=== PATIENT | male | born 1950 | race Caucasian/White ===

== ENCOUNTER 2017-01-27 06:27 | Day surgery (SDC) | payer OTHER ==
[~2017-01-27] VITALS: Ht 172.7 cm; Wt 136.1 kg
[~2017-01-27 06:27] MED LIST: ACET1TAB12 PO; ALLO300T2 PO; AMIT100T2 PO; AMLO5TAB88 PO; ASPI-1159 PO; ATOR20TA PO; BENA40TA3 PO; BENZ1TAB7 PO; CILO100T PO; CITA40TA11 PO; COLC0.6T66 PO; COR3 PO; FURO-151 PO; INSULIN LANTUS SQ; INSULIN LISPRO SQ; LORA10TA7 PO; METF500T4 PO; METO-296 PO; METO2.5T14 PO; OMEP20TA80 PO; POTA8TAB4 PO; PREG50CA PO; RISP1TAB26 PO; SPIR25TA4 PO; TAMS-11 PO
[2017-01-27] MEDS ORDERED: SODIUM CHLORIDE 0.9% 1,000 ML IV SCH (07:00)
[2017-01-27] MEDS ORDERED: BACITRACIN ZINC 15GM TUBE TOP ONE (07:04)
[2017-01-27] MEDS ORDERED: GELATIN SPONGE,ABSORBABLE SZ 100 ONE (07:04)
[2017-01-27] MEDS ORDERED: NORMAL SALINE 0.9% 10 ML SYR ONE (07:05)
[2017-01-27] MEDS ORDERED: BUPIVACAINE HCL/PF 0.5% (5MG/ML) 10ML ONE (07:05)
[2017-01-27] MEDS ORDERED: BACITRACIN 50,000 UNITS/VIAL ONE (07:05)
[2017-01-27] MEDS ORDERED: THROMBIN (BOVINE) 5000 UNITS/VIAL TOP ONE (07:05)
[2017-01-27] MEDS ORDERED: LIDOCAINE HCL 1% 20ML VIAL (Pyxis) INJ ONE ×2 (07:05→08:25)
[2017-01-27 07:13] LABS: EOSINOPHILS % 3.6 % (0.0-5.0); HEMATOCRIT. 42.4 % (42.0-52.0); LYMPHOCYTES % 26.6 % (20.0-50.0); MEAN CORPUSCULAR HEMOGLOBIN 30.8 pg (28.0-32.0); MEAN CORPUSCULAR VOLUME 87.1 fL (80.0-94.0); MEAN PLATELET VOLUME 7.6 fl (7.4-10.4); MONOCYTES % 8.1 % (2.0-8.0); NEUTROPHILS % 60.7 % (40.0-76.0); PLATELET 203 x1000/uL (130-400); RED BLOOD CELL COUNT 4.87 mill/uL (4.7-6.1); RED CELL DISTRIBUTION WIDTH 16.7 % (11.6-14.6)
[2017-01-27 07:15] LABS: INR 1.1; PARTIAL THROMBOPLASTIN TIME 28.9 sec (24.0-34.0)
[2017-01-27 07:17] LABS: CARBON DIOXIDE 30 mEq/L (21-32); CHLORIDE 102 mEq/L (98-107)
[2017-01-27] MEDS ORDERED: FENTANYL CITRATE/PF 50MCG/ML 2ML VIAL ONE ×2 (08:14→08:25)
[2017-01-27] MEDS ORDERED: MIDAZOLAM HCL 2 MG/2 ML VIAL ONE ×2 (08:14→08:25)
[2017-01-27] MEDS ORDERED: DEXAMETHASONE 4MG/ML 1ML VIAL ONE (08:24)
[2017-01-27] MEDS ORDERED: SODIUM CHLORIDE 0.9% 10ML VIAL ONE (08:25)
[2017-01-27] MEDS ORDERED: ONDANSETRON HCL 4MG/2ML VIAL ONE (08:25)
[2017-01-27] MEDS ORDERED: PROPOFOL 200MG/20ML VIAL IV ONE (08:25)
[2017-01-27] MEDS ORDERED: CEFAZOLIN SODIUM 1000MG/VIAL ONE (08:25)
[2017-01-27] MEDS ORDERED: SKIN ADHESIVE 0.7 GM EA TOP ONE (08:33)
[2017-01-27] MEDS ORDERED: ONDANSETRON HCL 4MG/2ML VIAL IV ONE (09:00)
[2017-01-27] MEDS ORDERED: HYDROMORPHONE HCL/PF 2MG/ML CPJ IV PRN ×2 (09:00→10:15)
[2017-01-27] MEDS ORDERED: LABETALOL HCL 20MG/4ML CARPUJECT IV PRN (10:15)
[2017-01-27] MEDS ORDERED: MEPERIDINE HCL/PF 25MG/ML CPJ IV PRN (10:15)
[2017-01-27] MEDS ORDERED: ONDANSETRON HCL 4MG/2ML VIAL IV PRN (10:15)
== END 2017-01-27 11:30 | disposition home or self-care (01) ==
LOC: OR 06:27
PROVIDERS: ATTEND Surgery Vascular Surgery
DX: I11.0 Hypertensive heart disease with heart failure (principal); I50.9 Heart failure, unspecified; I73.9 Peripheral vascular disease, unspecified; G47.33 Obstructive sleep apnea (adult) (pediatric); E78.5 Hyperlipidemia, unspecified; E11.9 Type 2 diabetes mellitus without complications; N40.0 Benign prostatic hyperplasia without lower urinary tract symptoms; F32.9 Major depressive disorder, single episode, unspecified; E66.09 Other obesity due to excess calories; Z79.4 Long term (current) use of insulin; Z79.82 Long term (current) use of aspirin; Z85.51 Personal history of malignant neoplasm of bladder
CPT/HCPCS: 0268T; 36415; 71010; 80048; 82962; 85025; 85610; 85730; 93005; A4216; G0168; J0690; J1100; J2250; J2405; J3010; J3490; J7030; J2704